=== PATIENT | male | born 1995 | race Caucasian/White ===

== ENCOUNTER 2019-11-08 19:42 | Emergency (ER) | payer BC ==
[~2019-11-08] VITALS: Ht 190.5 cm; Wt 84.1 kg
[2019-11-08 19:52] VITALS: BP 146/97; PULSE 108; TEMP 98.1
[2019-11-08] MEDS ORDERED: COREG12.5 MG PO (20:29)
== END 2019-11-08 21:28 | disposition home or self-care (01) ==
LOC: COL.ER 19:42
DX: S60.221A Contusion of right hand, initial encounter (principal); I10 Essential (primary) hypertension; F17.210 Nicotine dependence, cigarettes, uncomplicated; Z79.899 Other long term (current) drug therapy; W22.8XXA Striking against or struck by other objects, initial encounter; Y92.009 Unspecified place in unspecified non-institutional (private) residence as the place of occurrence of the external cause